=== PATIENT | male | born 1975 | race Caucasian/White ===

== ENCOUNTER 2018-11-03 04:57 | Emergency (ER) | payer BC ==
[2018-11-03] MEDS ORDERED: HYDROMORPHONE HCL INJ/PF 2 MG/ML AMPULE IV ONE ×2 (05:18→05:36)
[2018-11-03] MEDS ORDERED: NORMAL SALINE 1000 ML 1,000 ML IV ONE (05:18)
[2018-11-03] MEDS ORDERED: ONDANSETRON HCL INJ/PF 4 MG/2 ML SDV IV ONE (05:18)
[2018-11-03 05:32] LABS: ABSOLUTE EOSINOPHILS # (AUTO) 0.2 10^3/uL (0.0-0.6); ABSOLUTE LYMPHOCYTES (AUTO) 3.4 10^3/uL (0.5-4.7); ABSOLUTE MONOCYTES (AUTO) 0.6 10^3/uL (0.1-1.4); ABSOLUTE NEUT (AUTO) 5.4 10^3/uL (1.7-8.2); BASOPHILS % (AUTO) 0.3 % (0-2); EOSINOPHILS % (AUTO) 2.5 % (0-6); HEMATOCRIT 44.9 % (37.9-51.0); HEMOGLOBIN 15.7 g/dL (13.5-17.0); LYMPHOCYTES % (AUTO) 35.1 % (13-45); MEAN CORPUSCULAR HEMOGLOBIN 30.6 pg (27.0-33.4); MEAN CORPUSCULAR HGB CONC 35.1 g/dL (32.0-36.0); MEAN CORPUSCULAR VOLUME 87 fl (80-97); MONOCYTES % (AUTO) 6.3 % (3-13); PLATELET COUNT 263 10^3/uL (150-450); RED BLOOD COUNT 5.14 10^6/uL (4.35-5.55); SEGMENTED NEUTROPHILS % (AUTO) 55.8 % (42-78); TOTAL CELLS COUNTED % (AUTO) 100 %; WHITE BLOOD COUNT 9.7 10^3/uL (4.0-10.5)
[2018-11-03 05:47] LABS: ALANINE AMINOTRANSFERASE 57 U/L (21-72); ALBUMIN 4.9 g/dL (3.5-5.0); ALKALINE PHOSPHATASE 85 U/L (38-126); ANION GAP 12 (5-19); ASPARTATE AMINO TRANSFERASE 34 U/L (17-59); BILIRUBIN,DIRECT 0.1 mg/dL (0.0-0.4); BILIRUBIN,TOTAL 1.1 mg/dL (0.2-1.3); BLOOD UREA NITROGEN 19 mg/dL (7-20); CALCIUM 10.2 mg/dL (8.4-10.2); CARBON DIOXIDE 26 mmol/L (22-30); CHLORIDE 104 mmol/L (98-107); GLUCOSE 157 mg/dL (75-110); LIPASE 142.2 U/L (23-300); POTASSIUM 3.7 mmol/L (3.6-5.0); SODIUM 142.1 mmol/L (137-145); TOTAL PROTEIN 7.1 g/dL (6.3-8.2)
[2018-11-03] MEDS ORDERED: KETOROLAC TROMETHAMINE INJ/PF 30 MG/1 ML SDV IV ONE (05:50)
--- NOTE | 2018-11-03 06:26 | RADIOLOGY REPORT (SQ) ---
EXAM: CT abdomen and pelvis without IV contrast CLINICAL DATA: 43-year-old male with sudden sharp right flank pain TECHNICAL DATA: Axial CT imaging of the abdomen and pelvis was performed. Sagittal and coronal reconstructed images were then performed. The CT study is performed according to ALARA (as low as reasonably achievable) or ALARA/IMAGE GENTLY, with automatic adjustment of mA and/or kV according to patient size. Performed on: 11/03/2018 at 5:59 AM Comparison: None. FINDINGS: Lung bases: The lung bases are clear. Liver:The liver is normal in size and configuration. No focal hepatic abnormalities are appreciated on this unenhanced scan. Liver attenuation is within normal limits. Spleen:The spleen is normal is size, configuration and attenuation. No focal splenic abnormalities are appreciated on this unenhanced scan. Gallbladder and bile duct: The gallbladder is well distended and is unremarkable. There is no biliary ductal dilatation. Pancreas: The pancreas is grossly normal in size and configuration. Adrenal Glands:The adrenal glands are normal in size and configuration. Kidneys:The kidneys are normal in size and configuration. There is mild right-sided hydronephrosis secondary to a 0.3 x 0.3 x 0.4 cm calcification in the proximal right ureter. There is no significant perinephric inflammation or edema. There are a couple of punctate nonobstructing left renal calculi. Stomach:The stomach is grossly normal. There is no definite hiatal hernia. Bowel:The bowel gas pattern is non specific and non obstructive. Appendix: The appendix is normal. Free air:There is no evidence of free air. Free fluid: There is no evidence of free fluid. Vasculature: The aorta is normal in caliber and contour. The inferior vena cava is grossly unremarkable. Lymphadenopathy: No pathologic lymphadenopathy is identified. Bladder: The bladder is well distended and smooth in contour. Reproductive: The prostate gland is grossly within normal limits. Bones: No acute osseous abnormalities are identified. Soft tissues: No focal soft tissue abnormalities are identified. IMPRESSION: 1. There is mild right-sided hydronephrosis secondary to a 0.3 x 0.3 x 0.4 cm calcification in the proximal right ureter. There is no significant perinephric inflammation or edema 2. There are a couple of punctate nonobstructing left renal calculi.
[2018-11-03] MEDS ORDERED: OXYCODONE-ACETAMINOPHEN 5-325 MG TABLET PO ONE (07:04)
[2018-11-03] MEDS ORDERED: TAMSULOSIN HCL 0.4 MG CAP.SR.24H PO ONE (07:04)
[2018-11-03 07:43] LABS: APPEARANCE,URINE SLIGHTLY-CLOUDY; BILIRUBIN,URINE NEGATIVE (NEGATIVE); COLOR,URINE YELLOW; GLUCOSE, URINE NEGATIVE (NEGATIVE); KETONES,URINE TRACE mg/dL (NEGATIVE); LEUKOCYTE ESTERASE,URINE NEGATIVE (NEGATIVE); NITRITE,URINE NEGATIVE (NEGATIVE); PROTEIN,URINE NEGATIVE (NEGATIVE); URINE SPECIFIC GRAVITY 1.023; UROBILINOGEN,URINE NEGATIVE mg/dL (<2.0)
[2018-11-03 08:31] VITALS: BP 155/93
--- NOTE | 2018-11-08 08:42 | ER Document Report ---
Entered by PRADIP WICK SCRIBE 11/03/18 0523 Acting as scribe for:YAHIR OSWALD DO ED General - General Chief Complaint: Abdominal Pain Stated Complaint: ABDOMINAL PAIN Time Seen by Provider: 11/03/18 05:12 Mode of Arrival: Ambulatory Information source: Patient Notes: Patient is a 43 year old male with a history of kidney stones presents to the emergency department complaining of a sudden onset of abdominal pain onset around 0400. Patient states the pain is located in his right lower quadrant woke up him up from his sleep. He states he had similar pain in the past but it was located in his back and diagnosed to be a kidney stone. He denies any vomiting or a history of abdominal surgeries. Past Medical History - General Information source: Patient - Social History Smoking Status: Never Smoker Cigarette use (# per day): No Chew tobacco use (# tins/day): Yes Smoking Education Provided: No Frequency of alcohol use: Social Drug Abuse: None Family History: Reviewed & Not Pertinent Renal/ Medical History: Reports: Hx Kidney Stones Review of Systems - Review of Systems Constitutional: No symptoms reported EENT: No symptoms reported Cardiovascular: No symptoms reported Respiratory: No symptoms reported Gastrointestinal: See HPI, Abdominal pain Genitourinary: No symptoms reported Male Genitourinary: No symptoms reported Musculoskeletal: No symptoms reported Skin: No symptoms reported Hematologic/Lymphatic: No symptoms reported Neurological/Psychological: No symptoms reported -: Yes All other systems reviewed and negative Physical Exam - Vital signs Vitals: Pulse Resp BP Pulse Ox 58 L 22 H 190/104 H 100 11/03/18 05:04 11/03/18 05:04 11/03/18 05:04 11/03/18 05:04 - Notes Notes: GENERAL: Alert, appears acutely uncomfortable. HEAD: Normocephalic, atraumatic. EYES: Pupils equal, round, and reactive to light. Extraocular movements intact. ENT: Oral mucosa moist, tongue midline. NECK: Full range of motion. Supple. Trachea midline. LUNGS: Clear to auscultation bilaterally, no wheezes, rales, or rhonchi. No respiratory distress. HEART: Regular rate and rhythm. No murmurs, gallops, or rubs. ABDOMEN: Soft, some increase in pain to palpation to the RLQ, guarding. . Non- distended. Bowel sounds present in all 4 quadrants. EXTREMITIES: Moves all 4 extremities spontaneously. NEUROLOGICAL: Alert and oriented x3. Normal speech. PSYCH: Normal affect, normal mood. SKIN: Warm, acutely diaphoretic, normal turgor. No rashes or lesions noted. Course - Re-evaluation Re-evalutation: 11/03/18 05:59 CBC unremarkable, CMP unremarkable, lipase normal. Given lack of leukocytosis and degree of pain patient will have a CT renal protocol performed to look for likely right-sided kidney stone. Still awaiting urinalysis. Initial half milligram of Dilaudid did not relieve his pain. Dosage will be repeated. 11/03/18 07:04 CT scan reveals mild hydronephrosis with a 3 mm x 4 mm x 3 mm stone at the proximal right ureter, no perinephric stranding. I am still awaiting a urinalysis. So long as there is no sign of infection patient will be discharged home with Percocet, Flomax, Zofran and Phenergan. Patient is encouraged to take ibuprofen 800 mg every 8 hours and follow-up with urology. Use a urine strainer. 11/03/18 07:08 Pain is almost completely resolved. - Vital Signs Vital signs: Temp Pulse Resp BP Pulse Ox 58 L 22 H 190/104 H 100 11/03/18 05:04 11/03/18 05:04 11/03/18 05:04 11/03/18 05:04 - Laboratory Result Diagrams: 11/03/18 05:20 11/03/18 05:20 Laboratory results interpreted by me: 11/03/18 05:20 Glucose 157 H Discharge - Discharge Clinical Impression: Right ureteral calculus, Hydronephrosis, right Condition: Stable Disposition: HOME, SELF-CARE Additional Instructions: Kidney Stone You are passing or have passed a kidney stone. These stones are usually due to increased calcium or uric acid concentrations in your urine. Stones within the kidney itself are not painful. The pain occurs as the stone leaves the kidney to pass down the long tube, called the ureter, leading to the bladder. If the stone is small, it will usually pass by itself. Most patients can pass the stone at home. You will usually receive medications for pain, nausea or vomiting, and sometimes a medication to assist in passing the kidney stone. However, if the pain is very severe or if vomiting prevents you from taking oral pain medications, you may need to return for further treatment. Drink three or four quarts of fluids per day. You will be given pain medication (if needed) and urine strainers. Strain all your urine to see if the stone passes. If your doctor has asked you to bring the stone in for analysis, return with the stone once it has passed. Return if pain or vomiting become severe, if you develop a high fever, if you are unable to pass your urine, or if other unusual symptoms occur. Please take ibuprofen 800 mg every 8 hours the next 5 days to decrease her pain. If this does not completely control your pain you may take Percocet 1-2 tablets every 6 hours as needed for pain. Please take the Flomax every day to increase your chances of passing the stone. The Zofran and the Phenergan are to be used for nausea. Please drink plenty of fluids. Please use the urine strainer to see if you can catch the stone. Please make a follow-up appointment with a urologist for the next week. Please follow-up with your primary care physician on Monday if you have not yet passed the stone. Prescriptions: Ondansetron [Zofran Odt 4 mg Tablet] 1 - 2 tab PO Q4HP PRN #10 tab.rapdis PRN Reason: Oxycodone HCl/Acetaminophen [Percocet 5-325 mg Tablet] 1 tab PO Q6HP PRN #15 tab PRN Reason: For Breakthrough Pain Promethazine HCl [Phenergan] 50 mg RC Q6HP PRN #10 supp.rect PRN Reason: Tamsulosin HCl [Flomax 0.4 mg Cap.sr] 0.4 mg PO DAILY #7 cap.sr.24h Referrals: CARLA DANGELO MD [NO LOCAL MD] - Follow up as needed Scribe Attestation: 11/03/18 07:13 I personally performed the services described in the documentation, reviewed and edited the documentation which was dictated to the scribe in my presence, and it accurately records my words and actions. I personally performed the services described in the documentation, reviewed and edited the documentation which was dictated to the scribe in my presence, and it accurately records my words and actions.
== END 2018-11-03 08:56 | disposition home or self-care (01) ==
LOC: ER 04:57
DX: N13.2 Hydronephrosis with renal and ureteral calculous obstruction (principal); R10.31 Right lower quadrant pain; R10.813 Right lower quadrant abdominal tenderness; R61 Generalized hyperhidrosis
CPT/HCPCS: 99284; 96361; 96374; 96375; 36415; 87086; 83690; 85025; 87088; 80053; 81001; 87186; 74176; J1885; J1170; J2405; J7030